=== PATIENT | female | born 2000 | race Caucasian/White ===

== ENCOUNTER 2021-09-21 07:18 | Outpatient (REF) | payer OTHER, SELFPAY ==
[2021-09-21 07:57] LABS: MANUAL DIFF FLAG NO
[2021-09-21 08:14] LABS: Basophils Percent Auto 0.6 % (0-2); Eosinophils Absolute Auto 0.1 X10*3/uL (0.0-0.4); Eosinophils Percent Auto 1.6 % (0-4); Hematocrit 35.9 % (37.0-47.0); Hemoglobin 11.9 g/dl (12.0-16.0); Imm Gran Abs Auto 0.03 X10*3/uL (0.00-0.03); Imm Gran Pct Auto 0.4 % (0.0-0.4); Lymphocytes Absolute Auto 1.7 X10*3/uL (1.2-4.9); Lymphocytes Percent Auto 24.6 % (20-40); Mean Corpuscular HGB Conc 33.1 g/dl (31.0-35.0); Mean Corpuscular Hemoglobin 29.8 pg (27.0-33.0); Mean Platelet Volume 9.8 fL (9.4-12.3); Monocytes Absolute Auto 0.5 X10*3/uL (0.1-1.2); Monocytes Percent Auto 6.8 % (2-11); Neutrophils Absolute Auto 4.5 x10*3/uL (2.0-8.3); Platelet Count 246 X10*3/uL (160-400); Red Blood Count 3.99 X10*6/uL (4.20-5.50); Red Cell Distribution Width 12.4 % (11.0-16.0); White Blood Count 6.9 X10*3/uL (4.8-10.8)
[2021-09-26 17:17] LABS: Treponema pallidum Ab FTA ABS Nonreactive (Nonreactive)
== END 2021-09-21 07:19 | disposition home or self-care (01) ==
LOC: HO.LAB 07:18
PROVIDERS: Visit Provider Advanced Practice Midwife
DX: Z34.03 Encounter for supervision of normal first pregnancy, third trimester (principal)
CPT/HCPCS: 36415; 85025; 86780

== ENCOUNTER 2021-09-23 08:09 | Outpatient (REF) | payer OTHER, SELFPAY ==
[2021-09-23 10:35] LABS: Glucose 1 Hour PP 50gm Dose 107 mg/dL (60-140)
== END 2021-09-23 08:10 | disposition home or self-care (01) ==
LOC: HO.LAB 08:09
PROVIDERS: Visit Provider Advanced Practice Midwife
DX: Z34.03 Encounter for supervision of normal first pregnancy, third trimester (principal)
CPT/HCPCS: 36415

== ENCOUNTER 2022-01-19 07:39 | Outpatient (REF) | payer OTHER, SELFPAY ==
--- NOTE | ~2022-01-19 | XR_ITS ---
EXAMINATION: RIGHT KNEE 2 VIEWS. BILATERAL STANDING KNEES. CLINICAL INFORMATION: This is a 21-year-old female with pain in unspecified knee. COMPARISON: None TECHNIQUE: A single standing view of the knees was obtained. 2 views of the right knee were then obtained. FINDINGS: There is a small suprapatellar joint effusion. There is no evidence of fracture or dislocation. There is no subluxation. The joint spaces appear intact. No osteoarthritic changes are noted. XR/XR knee RT 2V IMPRESSION: 1. There is a small suprapatellar joint effusion. Otherwise, negative.
--- NOTE | ~2022-01-19 | XR_ITS ---
EXAMINATION: RIGHT KNEE 2 VIEWS. BILATERAL STANDING KNEES. CLINICAL INFORMATION: This is a 21-year-old female with pain in unspecified knee. COMPARISON: None TECHNIQUE: A single standing view of the knees was obtained. 2 views of the right knee were then obtained. FINDINGS: There is a small suprapatellar joint effusion. There is no evidence of fracture or dislocation. There is no subluxation. The joint spaces appear intact. No osteoarthritic changes are noted. XR/XR knee standing BI IMPRESSION: 1. There is a small suprapatellar joint effusion. Otherwise, negative.
== END 2022-01-19 07:40 | disposition home or self-care (01) ==
LOC: HO.HOSX 07:39
PROVIDERS: Visit Provider Physician Assistant
DX: S83.004A Unspecified dislocation of right patella, initial encounter (principal); M25.562 Pain in left knee
CPT/HCPCS: 73560; 73565

== ENCOUNTER 2022-01-25 19:30 | Outpatient (REF) | payer OTHER, SELFPAY ==
--- NOTE | ~2022-01-25 | MR_ITS ---
EXAMINATION: MR KNEE WITHOUT CONTRAST, RIGHT CLINICAL INFORMATION: Right knee pain. COMPARISON: None TECHNIQUE: MRI of the knee without contrast was performed using routine sequences on a high-field scanner. FINDINGS: MENISCI: Medial Meniscus: Intact. Lateral Meniscus: A bucket-handle tear propagates from the posterior root to the junction of the anterior horn and body with displacement of the bucket-handle fragment into the intercondylar notch and anterior aspect of the joint. The tear occurs along the meniscocapsular attachment both posteriorly and laterally without significant residual orthotopic meniscal tissue. LIGAMENTS: Cruciate: Intact. Collateral: Intact. EXTENSOR MECHANISM: Intact. ARTICULAR CARTILAGE/BONE: Patellofemoral Compartment: Normal. Medial Compartment: Normal. Lateral Compartment: Normal. JOINT FLUID AND BURSAE: Small joint effusion. No Garcia's cyst. MR/MR knee RT wo con IMPRESSION: 1. Displaced bucket-handle tear of the posterior horn and body of the lateral meniscus along the meniscocapsular attachment. 2. Small joint effusion.
== END 2022-01-25 19:31 | disposition home or self-care (01) ==
LOC: HO.MRI 19:30
PROVIDERS: Visit Provider Physician Assistant
DX: S83.004A Unspecified dislocation of right patella, initial encounter (principal)
CPT/HCPCS: 73721

== ENCOUNTER 2022-02-06 05:58 | Day surgery (SDC) | payer OTHER, SELFPAY ==
[2022-02-02 15:49] VITALS: BMI 23.0
--- NOTE | 2022-02-05 09:14 | HO.ANESPROP2 ---
Documented by User: Aimee Reveles NP 02/05/22 09:15 HPI - Anesthesia Eval Consult details Narrative: 21yo F for Right Knee Replacement Total PMFSH Active Problems Active Problems: All Active Problems (Updated 02/02/22 @ 15:57 by Ayah Aguilar RN) Dislocation of patella, right, closed (Acute) Past Medical History Medical History No pertinent past medical history Surgical History Surgical History No pertinent past surgical history Social History Social History Are you a primary client care manager to a significant other at home: No Do you presently have visiting nurse or other home services: No Patient Tobacco Use Status: Never used Tobacco Second Hand Smoke Exposure: No Use of substances other than those prescribed or required for medical reasons: No Have you been hit, kicked, punched, or otherwise hurt by someone within the past year? If so, by whom?: No Are you DNR?: No Advance Directives: No Advance Directives Information Provided: No Advance Directives on File: No Recently lost weight without trying: No Eating poorly because of decreased appetite: No Nutrition Risks: No Nutritional Risk Patient : No Current occupational status: employed Current occupation: RN Meds Allergies Allergy/AdvReac Type Severity Reaction Status Date / Time No Known Allergies Allergy Verified 02/02/22 15:17 Exam Exam Date and Time: February 05, 2022 0914 Height,Weight and Vital Signs: Height 5 ft 3 in Weight 58.967 kg Assessment and Plan Assessment Anesthesia Assessment: Chart Reviewed Documented by User: Jordan Bernal MD 02/06/22 11:14 HPI - Anesthesia Eval Consult details Narrative: 21yo F for Right Knee Arthroscopy [facility] Past Medical History Medical History No pertinent past medical history Family History Family history of problems with anesthesia: No Surgical History Surgical History No pertinent past surgical history History of Problems with Anesthesia: No Social History Social History Are you a primary client care manager to a significant other at home: No Do you presently have visiting nurse or other home services: No Patient Tobacco Use Status: Never used Tobacco Second Hand Smoke Exposure: No Use of substances other than those prescribed or required for medical reasons: No Have you been hit, kicked, punched, or otherwise hurt by someone within the past year? If so, by whom?: No Are you DNR?: No Advance Directives: No Advance Directives Information Provided: No Advance Directives on File: No Recently lost weight without trying: No Eating poorly because of decreased appetite: No Nutrition Risks: No Nutritional Risk Patient : No Current occupational status: employed Current occupation: RN Meds Allergies Allergy/AdvReac Type Severity Reaction Status Date / Time No Known Allergies Allergy Verified 02/02/22 15:17 Exam Airway Loose/Missing/Broken Teeth: No Assessment and Plan Assessment Anesthesia Assessment: Anesthesia Plan Discussed Final Anesthetic Review Family History of Problems with Anesthesia: No History of Problems with Anesthesia: No NPO: Yes ASA Class: I Final Preanesthetic Review: No Changes in Pt Med Stat, Meds/Allgs Chart Reviewed, Consent Obtained/Reviewed and Anes Risks/Benef Reviewed Patient Risk: Low Procedure Risk: Low Anesthetic Plan Anesthetic Plan: GA Disposition: Standard PACU
[2022-02-06] VITALS (13 sets, daily range): BP systolic 124–142; BP diastolic 64–89; PULSE 75–110; RESP 16–18; TEMP 36.1–37.2; O2SAT 97–100
[2022-02-06 06:23] LABS: UPreg QC Valid YES; Urine Pregnancy NEGATIVE (NEGATIVE)
[2022-02-06] MEDS: Lactated Ringers 1,000 ML 100 ML IVCONT (06:29)
--- NOTE | 2022-02-06 09:02 | PM.OP ---
Brief Operative Note Date of Service: 02/06/22 Pre-op diagnosis: lateral menioscus tear Post-op diagnosis: other (displaced bucket handle lateral meniscus tear) Procedure: Lateral meniscus repair and partial meniscectomy Implants: potts and nephew fast fix x 3 Surgeon: Clarence Hobson MD Anesthesia: GETA and local Was an Fashion Consultant used for this Procedure?: Yes Fashion Consultant: Opal Enriquez Estimated blood loss (mL): 10 Tourniquet time (min): 58 IV fluids (mL): 1,000 Pathology: none sent Condition: stable Disposition: PACU
--- NOTE | 2022-02-06 09:05 | MHC.SHP ---
Pre-Procedural Eval Section A Date of Service: 02/06/22 The patient is an INPATIENT: No Changes since office visit: Yes Patient answered all questions; No Cold of Flu in the past 2 weeks, No New Medical Problems and No Changes in Medication The History & Physical has been completed within 30 days and I have reviewed it.: Yes Section B Chief Complaint: dislocation of right patella, initial Allergies: Allergies Allergy/AdvReac Type Severity Reaction Status Date / Time No Known Allergies Allergy Verified 02/02/22 15:17 Plan I have reviewed the history and physical and performed a pertinent physical examination on my patient. No changes have occurred unless specified.
[2022-02-06] MEDS: Acetaminophen 325 MG TABLET 975 MG PO (09:39)
[2022-02-06] MEDS: Ketorolac Tromethamine 30 MG/ML VIAL 15 MG IVPUSH (09:39)
[2022-02-06] MEDS: ondansetron HCL 4 MG/2 ML VIAL IVPUSH (10:22)
--- NOTE | 2022-02-06 15:41 | W.PM.OPN ---
Operative Note Operative Note Date of Service: 02/06/22 Narrative: Pre-op diagnosis: lateral menioscus tear Post-op diagnosis: other (displaced bucket handle lateral meniscus tear) Procedure: Lateral meniscus repair and partial meniscectomy Implants: potts and nephew fast fix x 3 Surgeon: Clarence Hobson MD Anesthesia: GETA and local Was an Motor Bus Driver used for this Procedure?: Yes Motor Bus Driver: Opal Enriquez Estimated blood loss (mL): 10 Tourniquet time (min): 58 IV fluids (mL): 1,000 Pathology: none sent Condition: stable Disposition: PACU Procedure in detail: Patient was brought to the operating room and placed supine on the surgical table. She was prepped and draped in standard sterile fashion and a time out was called to indentify proper site, proper procedure and IV antibiotics per weight were administered. I began by exsanguinating the limb and insufflating tourniquet to 300 mm Hg. Then made a standard anterolateral stab incision. The knee was insufflated with water and 30 degree arthroscope was placed. There was a normla patella and trochlea and the suprapatellar pouch was clean and the gutters were clean. I descended into the medial compartment where I made my medial portal under direct visualization. There was A normal medial compartment. The ACL was intact but there was a bucket-handle lateral meniscus tear that it flipped into the notch. I was able to reduce this with a blunt trocar but it remained unstable. There were scattered grade 1 changes of the lateral tibial plateau and what appeared to be a small chondral injury to the lateral aspect of the lateral femoral condyle. I used the Potts and Nephew Fast Fix and was able to place 2 all inside sutures through the body of the lateral meniscus. The quality of the meniscus was poor and would not hold additional suture. I used a shaver to remove the torn portion of the body and approximately 30% of the meniscal body was removed. I was able to stabilize the tear and was satisfied with the repair however.. All instrumentation was then removed and the portals were closed with nylon. Approximately 20 mL of 0.25% Marcaine plain was injected into the soft tissues and the joint. Patient was then placed in sterile dressing extubated brought recovery room stable condition. There were no known complications.
== END 2022-02-06 12:20 | disposition home or self-care (01) ==
PROVIDERS: Nurse Practitioner; Visit Provider Orthopaedic Surgery
PROC: (CPT 29870; principal; 2022-02-06 07:30)
DX: S83.251A Bucket-handle tear of lateral meniscus, current injury, right knee, initial encounter (principal); S83.004A Unspecified dislocation of right patella, initial encounter; M25.461 Effusion, right knee; X58.XXXA Exposure to other specified factors, initial encounter; Y93.89 Activity, other specified; Y92.89 Other specified places as the place of occurrence of the external cause; Y99.8 Other external cause status
CPT/HCPCS: 29882; 29881; 81025; C1713; J0171; J0690; J1100; J1885; J2250; J2405; J2550; J3010

== ENCOUNTER → 2022-02-12 08:47 | Outpatient (BNVA) | payer OTHER, SELFPAY | PROVIDERS: Visit Provider Physician Assistant | DX: Z13.89 Encounter for screening for other disorder (principal) ==

== ENCOUNTER → 2022-03-12 10:15 | Outpatient (BNVA) | payer OTHER, SELFPAY | PROVIDERS: Visit Provider Physician Assistant | DX: Z13.89 Encounter for screening for other disorder (principal) ==

== ENCOUNTER 2022-03-28 07:00 | Outpatient (RCR) | payer OTHER, SELFPAY ==
--- NOTE | 2022-02-12 10:03 | MHC.PT.EP ---
[facility] [place] Office [place] Office [place] [address] Hayley Andrade [address] [phone] F: [phone] F: [phone] F: [phone] F: [phone] Physical Therapy Plan of Care Date of Evaluation: Date of Surgery: 02/06/22 Diagnosis: S/P RIGHT MEDIAL MENISECTOMY 02/06/22 (KP) Assessment: ANA MARIA IS A PLEASANT 21 YO FEMALE S/P RIGHT MEDIAL MENISCECTOMY 02/06/22. SHE WAS EVALUATED TODAY IN THE ORTHOPEDIC OFFICE AT HER FIRST POST-OP VISIT. UPON EXAM SHE DEMONSTRATES THE EXPECTED DEFICITS OF DECREASED ROM AND STRENGTH, ALTERED GAIT, INCREASED EDEMA AND PAIN. FUNCTIONAL LIMITATIONS INCLUDE DECREASED ABILITY TO PERFORM WALKING WITHOUT AD, DECREASED ABILITY TO PERFORM HOMEMAKING AND CHILDCARE TASKS, DECREASED ABILITY TO NAVIGATE STAIRS, DECREASED ABILITY TO PERFORM PUSHING, PULLING, LIFTING AND SQUATTING. Pt IS A GOOD CANDIDATE FOR SKILLED PT DUE TO AGE, POTENTIAL REMEDIATION OF IMPAIRMENTS, TYPICAL DISEASE/CONDITION PROGRESSION AND PROGNOSIS, COMORBIDITIES, AND MOTIVATION. Pt WOULD BENEFIT FROM TAILORED PROGRAM OF THERAPEUTIC ACTIVITIES, FUNCTIONAL TRAINING, GAIT TRAINING, POSTURAL EDUCATION, NEUROMUSCULAR RE-EDUCATION, AND MODALITIES NEEDED. Frequency and Duration: The patient will be seen 2 X WEEK FOR 4 WEEKS THEN REASSESS Short Term Goals: INITIATE HEP AND PROMOTE SELF MANAGEMENT OF SYMPTOMS IN 2 VISITS Residential Goals: IN 4 WEEKS: TO DEMONSTRATE FULL KNEE ROM, EQUAL GRISELDA TO DEMONSTRATE FULL LE STRENGTH, EQUAL GRISELDA TO ASCEND AND DESCEND STAIRS WITHOUT PAIN GREATER THAN 2/10 TO AMBULATE AD REJI ON LEVEL AND UNEVEN SURFACES FOR FITNESS WITHOUT PAIN GREATER THAN 2/10 TO PERFORM FULL FUNCTIONAL SQUAT WITHOUT SUBSTITUTION Treatment Plan: Modalities to reduce pain, spasms and effusion. Manual therapy to restore motion and function. Therapeutic exercise to improve strength and flexibility. Neuromuscular re-education for posture and balance. Therapeutic activities to return to functional activities of daily living. Electronically signed by: LARA DUKE PT, DPT Please sign and return to therapist. Thank you for your referral.
--- NOTE | 2022-03-09 14:00 | MHC.PT.OD ---
[facility] [place] Office [place] Office [place] Office [address] Hayley Andrade [address] [facility] [phone] F: [phone] F: [phone] F: [phone] F: [phone] Physical Therapy Daily Note Diagnosis: S/P RIGHT MEDIAL MENISECTOMY 02/06/22 () Date of Surgery: S/P RIGHT LATERAL MENISCUS REPAIR AND PARTIAL (30%) MENISECTOMY 02/06/22 Date of Evaluation: 02/12/22 Date of Treatment: 03/09/22 Treatments to Date: 7 Cancellations to Date: 0 No Shows to Date: 0 Authorized Visits: Insurance End Date: Precautions/ Contraindications:WBAT, MAY INCREASE BRACE IN 2 WEEKS PER OP REPORT 'Patient was brought to the operating room and placed supine on the surgical table. She was prepped and draped in standard sterile fashion and a time out was called to indentify proper site, proper procedure and IV antibiotics per weight were administered. I began by exsanguinating the limb and insufflating tourniquet to 300 mm Hg. Then made a standard anterolateral stab incision. The knee was insufflated with water and 30 degree arthroscope was placed. There was a normla patella and trochlea and the suprapatellar pouch was clean and the gutters were clean. I descended into the medial compartment where I made my medial portal under direct visualization. There was A normal medial compartment. The ACL was intact but there was a bucket-handle lateral meniscus tear that it flipped into the notch. I was able to reduce this with a blunt trocar but it remained unstable. There were scattered grade 1 changes of the lateral tibial plateau and what appeared to be a small chondral injury to the lateral aspect of the lateral femoral condyle. I used the Menard and Nephew Fast Fix and was able to place 2 all inside sutures through the body of the lateral meniscus. The quality of the meniscus was poor and would not hold additional suture. I used a shaver to remove the torn portion of the body and approximately 30% of the meniscal body was removed. I was able to stabilize the tear and was satisfied with the repair however.. All instrumentation was then removed and the portals were closed with nylon. Approximately 20 mL of 0.25% Marcaine plain was injected into the soft tissues and the joint. Patient was then placed in sterile dressing extubated brought recovery room stable condition. There were no known complications.' Subjective: Pt expressing has been stretching 1x/daily and icing prn, no real pain today. Pain Score and Location: 3 R KNEE Objective Flowsheet: Tests & Measures AROM R knee - 8 degrees AAROM post stretching to -3 Opened brace to 90 degrees of flexion for CKC in office today Pt advised okay to keep Exercises Trial upright bike for gentle revolutions seat two clicks up backwards x 5 minutes, then five minutes backwards, after CKC tasks in the office today. Knee extension heel prop for knee extension -8 AROM, review of seated HS and seated gastroc stretch encouraged to increase 3-4x/daily HS and calf x 30 sec hold, review of SLR into flexion x 15R, SL hip abduction/extension/add , Adjusted opening of brace to 90 degrees, completed TKE with YTB for focus on extension x 3 sets 10R (no brace on with cues for end range extension goal), (Brace on) step-ups x 2 sets 10R 4 inch, then 6 inch leading with L LE up and stepping back with R LE, step down from 6 inch x 2 sets 10R, leading with L LE first and then stepping back with R LE. Educated re: icing of knee for extension at home. Knee extension with ice at end of session with heel prop 2# weight over anterior knee. Able to obtain full near knee extension following completion of passive knee ext stretch with cuff weight ice pack over knee. SIT<>STAND WITH AND WITHOUT BALL SQUEEZE X 10 R (2 SETS), STANDING AT BAR FOR B HEEL RAISE X 20 R, GT WITHOUT BRACE WITH EMPHASIS ON HEEL STRIKE AND HEEL OFF (NEG BUCKLE NOTED) UNABLE TO ACHIEVE FULL EXT IN R KNEE. AT BAR FOR STANDING HIP ABD X 20 R B (NEG LEG BUCKLE) Pt presents with tape over her knee from previous session- educated/encouraged to remove at end of day to assess skin response/tolerance. ED RE BRACE USE (DOES NOT NEED IT TO SLEEP AT THIS TIME (HAS BEEN GOING TO BED WITH IT, THEN TAKING IT OFF IN MIDDLE OF NIGHT), CAN TRY SHORT PDS WITHOUT IT AT HOME (MINDFUL OF BUCKLING) Modalities Pt TO ICE AT HOME Assessment: Pt presented into office with -8 degrees extension wearing slip on shoes Collyer brace opened to 50 degrees, no crutches. Pt educated to wear sneakers next session. Opened brace to 90 in the office and initiated CKC step-ups and step-downs with 4 inch>6 inch step with no evidence of buckling or instability. Good SLR control. Encouraged pt to keep brace open -15 to 90 for ambulation. 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 Pt increasing awareness of active knee extension while standing and with tasks in office today. Pt has a follow up with ortho Saturday. Pt encouraged to increase frequency of passive knee ext, icing and stretching HS/calf at home to obtain goal of knee extension. Pt trialed on upright bike with good tolerance in the office (posterior revolutions x 5 minutes>anterior revolutions x 5 minutes with good tolerance). No pain reported with tasks today. PT Plan: Knee ext>flex, continue CKC as able Continue upright bike for ROM, strengthening and prepare for RTW demands, stair climbing Short Term Goals: 1) AROM knee ext -5 (STG), LTG Knee extension 0 degrees. Snf Goals: IN 4 WEEKS: TO DEMONSTRATE FULL KNEE ROM, EQUAL GRISELDA TO DEMONSTRATE FULL LE STRENGTH, EQUAL GRISELDA TO ASCEND AND DESCEND STAIRS WITHOUT PAIN GREATER THAN 2/10 TO AMBULATE AD REJI ON LEVEL AND UNEVEN SURFACES FOR FITNESS WITHOUT PAIN GREATER THAN 2/10 TO PERFORM FULL FUNCTIONAL SQUAT WITHOUT SUBSTITUTION Electronically signed by: Orquidea LAYTON, PT, DPT
== END 2022-05-31 15:10 | disposition home or self-care (01) ==
LOC: HO.PTWFD 07:00
PROVIDERS: Visit Provider Physician Assistant
DX: S83.201D Bucket-handle tear of unspecified meniscus, current injury, left knee, subsequent encounter (principal)
CPT/HCPCS: 97110; 97140; 97161; 97530

== ENCOUNTER 2022-08-21 14:04 | Outpatient (REF) | payer OTHER, SELFPAY ==
--- NOTE | ~2022-08-21 | US_ITS ---
EXAMINATION: US OBSTETRICAL ULTRASOUND CLINICAL INFORMATION: Check size and dates COMPARISON: None. LMP: 05/21/2022. Gestational age by maternal dates is 13 weeks 1 day. Estimated date of delivery by maternal dates is 02/25/2023. TECHNIQUE: Transabdominal OB ultrasound FINDINGS: There is a single intrauterine gestational sac with embryo/fetus, and cardiac activity. There is no significant subchorionic hemorrhage or hematoma. HR: 158 beats per minute. CRL (crown rump length): 6.7 cm (13 weeks 1 day +/- 4 days). CHELSEY (estimated date of delivery): 02/25/2023 +/- 4 days. MATERNAL ADNEXA: The right maternal ovary is not seen. The left maternal ovary measures 2 x 1.7 x 3.2 cm. There is no significant maternal adnexal mass. No maternal pelvic ascites. US/US OB <= 14 weeks fetus IMPRESSION: 1. Single intrauterine gestation with ultrasound gestational age of 13 weeks 1 day +/- 4 days. 2. Estimated date of delivery is 02/25/2023 +/- 4 days. 3. No maternal adnexal mass or pelvic ascites.
== END 2022-08-21 14:05 | disposition home or self-care (01) ==
LOC: HO.HMGCX 14:04
PROVIDERS: Visit Provider Advanced Practice Midwife
DX: Z34.91 Encounter for supervision of normal pregnancy, unspecified, first trimester (principal); Z3A.13 13 weeks gestation of pregnancy
CPT/HCPCS: 76801